=== PATIENT | male | born 1990 | race Two or more races ===

== ENCOUNTER 2019-06-10 09:37 | Emergency (ER) | payer OTHER ==
[~2019-06-10] VITALS: Ht 167.6 cm; Wt 72.6 kg
[~2019-06-10 09:37] MED LIST: CLARINEX-D 11 BOTTLE PO; PROVENTIL3 ML/2.5 M IH
[2019-06-10] MEDS ORDERED: PEPCID AC20 MG PO (13:17)
[2019-06-10] MEDS ORDERED: INTESTINEX680 M2 PO (13:17)
== END 2019-06-10 13:33 | disposition home or self-care (01) ==
LOC: ER 09:37
DX: R10.11 Right upper quadrant pain (principal)

== ENCOUNTER 2021-03-29 08:08 | Outpatient (CLI) | payer OTHER ==
[~2021-03-29 08:08] MED LIST changes: +INTESTINEX680 M2 PO; +PEPCID AC20 MG PO
== END 2021-03-29 08:14 | disposition home or self-care (01) ==
LOC: SONOGRAMA 08:08
DX: R10.0 Acute abdomen (principal)

== ENCOUNTER 2023-09-29 21:10 | Emergency (ER) | payer OTHER ==
[~2023-09-29] VITALS: Ht 170.2 cm; Wt 76.2 kg
[2023-09-29] MEDS ORDERED: levoFLOXacin IN DEXTROSE 5 % 5 MG/ML PIGGYBAG IV STA (22:22)
[2023-09-29] MEDS ORDERED: METHYLPREDNISOLONE SOD SUCC 125 MG VIAL IV STA (22:22)
[2023-09-29] MEDS ORDERED: BUDESONIDE 0.5 MG/2 ML AMPUL.NEB IH STA (22:23)
[2023-09-29] MEDS ORDERED: METHYLPREDNISOLONE SOD SUCC 125 MG VIAL ONE (22:29)
[2023-09-29] MEDS ORDERED: IPRATROPIUM BROMIDE 0.5 MG/2.5 ML AMPUL.NEB IH SCH (22:30)
[2023-09-29] MEDS ORDERED: LEVALBUTEROL HCL 1.25 MG/3 ML SOLUTION IH SCH (22:30)
[2023-09-29] MEDS ORDERED: IPRATROPIUM BROMIDE 0.5 MG/2.5 ML AMPUL.NEB IH ONE (23:47)
[2023-09-29] MEDS ORDERED: LEVALBUTEROL HCL 1.25 MG/3 ML SOLUTION IH ONE (23:47)
[2023-09-29] MEDS ORDERED: BUDESONIDE 0.5 MG/2 ML AMPUL.NEB IH ONE (23:47)
== END 2023-09-30 00:31 | disposition home or self-care (01) ==
LOC: ER 21:11
DX: J45.909 Unspecified asthma, uncomplicated (principal)

== ENCOUNTER 2024-07-19 16:59 | Emergency (ER) | payer OTHER ==
[~2024-07-19] VITALS: Ht 170.2 cm; Wt 84.8 kg
[2024-07-19] MEDS ORDERED: KETOROLAC TROMETHAMINE 60 MG VIAL IM ONE (18:00)
[2024-07-19] MEDS ORDERED: CEFTRIAXONE SODIUM 1,000 MG VIAL IM ONE (18:00)
== END 2024-07-19 18:21 | disposition home or self-care (01) ==
LOC: ER 17:26
DX: J03.80 Acute tonsillitis due to other specified organisms (principal); B96.89 Other specified bacterial agents as the cause of diseases classified elsewhere